=== PATIENT | female | born 1955 | race Caucasian/White ===

== ENCOUNTER 2020-03-31 12:21 | Outpatient (CLI) | payer OTHER ==
--- NOTE | 2020-03-31 12:57 | RAD ---
Left hand 3 views HISTORY: Pain. FINDINGS: Mild joint space narrowing at the distal interphalangeal joints. Moderate joint space narro wing and lateral subluxation at the first carpometacarpal joint. Prominent osteophytosis of the trapezium. Moderate subchondral sclerosis. Tiny well-corticated ossification overlying the medial margin of the hamate on the frontal view may r epresent an exostosis or old ossific avulsion. No acute fracture, dislocation, or aggressive osseous erosions. IMPRESSION : Osteoarthritic changes most pronounced at the first carpometacarpal joint including lateral subluxati on.
--- NOTE | 2020-03-31 14:47 | RAD ---
RIGHT HAND 3 VIEWS: HISTORY: Pain right thumb. FINDINGS: Moderate DJD at the 1st carpometacarpal joint. MCP joints are unremarkable. IP joints unremarkable. No fracture or acute abnormality. IMPRESSION: Moderate degenerative change of the 1st carpometacarpal joint. POS: OFF
== END 2020-03-31 12:22 | disposition home or self-care (01) ==
LOC: MADRAD 12:21
PROVIDERS: ATTEND Surgery
DX: M18.0 Bilateral primary osteoarthritis of first carpometacarpal joints (principal); S63.112A Subluxation of metacarpophalangeal joint of left thumb, initial encounter